=== PATIENT | male | born 1965 | race Caucasian/White ===

== ENCOUNTER 2019-06-09 14:27 | Emergency (ER) | payer OTHER ==
[~2019-06-09] VITALS: Ht 175.3 cm; Wt 73.0 kg
[~2019-06-09 14:27] MED LIST: IBUP-974 PO
[2019-06-09 14:43] VITALS: BP 131/73
--- NOTE | 2019-06-09 14:49 | NUR ---
53 Y/O MALE PRESENTED WITH C/C OF L THUMB PAIN DUE TO TRAUMA, 04/22, PRESSURE SENSATION. PER PT 2 WEEKS AGO PT CUT THUMB WITH SAW WHILE WORKING, CLEANED FINGER AND CONT TO WORK, ONE WEEK AGO HE HIT SAME THUMB WITH HAMMER AND WENT TO WHO PRESCRIBED ABX. PER PATIENT SQUEEZED THUMB AND YELLOW MATTER CAME OUT. PT HAS NKA. NO MEDICAL HX. NO MEDS ON REG BASIS. LAST ORAL INTAKE THIS MORNING, TOLERATED WELL. SIDE RAIL X1.
[2019-06-09] MEDS ORDERED: KETOROLAC 30 MG/ML VIAL IM ONE (15:05)
--- NOTE | 2019-06-09 16:05 | NUR ---
PATIENT AMBULATED TO BED 09
[2019-06-09 16:40] LABS: BASOPHILS # (AUTO) 0.1 K/uL (0.00-0.22); BASOPHILS % (AUTO) 0.8 % (0.0-2.0); EOSINOPHILS # (AUTO) 0.5 K/uL (0-0.4); EOSINOPHILS % (AUTO) 5.9 % (0.0-4.0); HEMATOCRIT 39.3 % (36-52); LYMPHOCYTES # (AUTO) 2.2 K/uL (2.0-11.5); LYMPHOCYTES % (AUTO) 29.4 % (20.5-51.1); MEAN CORPUSCULAR HEMOGLOBIN 29 pg (27-31); MEAN CORPUSCULAR HGB CONC 33 g/dL (33-37); MEAN CORPUSCULAR VOLUME 88.6 fL (80-94); MONOCYTES # (AUTO) 0.6 K/uL (0.8-1.0); MONOCYTES % (AUTO) 7.7 % (1.7-9.3); NEUTROPHILS # (AUTO) 4.3 K/uL (1.8-7.7); NEUTROPHILS % (AUTO) 56.2 % (42.2-75.2); PLATELET COUNT (AUTO) 309 K/uL (140-450); RED BLOOD CELL COUNT(AUTO) 4.44 MIL/uL (4.20-6.10); RED CELL DISTRIBUTION WIDTH 14.8 % (11.6-13.7); WHITE BLOOD COUNT (AUTO) 7.6 K/uL (4.8-10.8)
[2019-06-09 17:13] LABS: APPEARANCE,URINE CLEAR (CLEAR); BILIRUBIN,URINE NEGATIVE (NEGATIVE); BLOOD, URINE NEGATIVE (NEGATIVE); COLOR,URINE YELLOW (YELLOW); LEUKOCYTE ESTERASE ,URINE NEGATIVE (NEGATIVE); NITRITE, URINE NEGATIVE (NEGATIVE); UGLUCOSE NEGATIVE (NEGATIVE)
[2019-06-09 17:19] LABS: ALBUMIN 3.5 g/dL (3.4-5.0); ANION GAP 12.5 (8-16); CREATININE 0.8 mg/dL (0.7-1.3); POTASSIUM 4.5 mmol/L (3.5-5.1); TOTAL BILIRUBIN 0.3 mg/dL (0.0-1.0)
--- NOTE | 2019-06-09 17:19 | NUR ---
Patient appears to be resting comfortably in bed. Speaking with at bedside. Will continue to monitor.
--- NOTE | 2019-06-09 17:56 | NUR ---
Patient being evaluated by FANY KIM at bedside.
--- NOTE | 2019-06-09 17:58 | NUR ---
Dr. Ochoa evaluating patient at bedside.
[2019-06-09 18:30] VITALS: BP 150/80
--- NOTE | 2019-06-09 18:30 | NUR ---
Patient discharged with v/s stable. Written and verbal after care instructions given and explained. Patient alert, oriented and verbalized understanding of instructions. Ambulatory with steady gait. All questions addressed prior to discharge. ID band removed. Patient advised to follow up with PMD. Rx of clindamycin, ibuprofen given. Patient educated on indication of medication including possible reaction and side effects. Opportunity to ask questions provided and answered.
== END 2019-06-09 18:30 | disposition home or self-care (01) ==
LOC: MED 14:27
DX: M86.8X8 Other osteomyelitis, other site (principal); F17.210 Nicotine dependence, cigarettes, uncomplicated
CPT/HCPCS: 36415; 73140; 80053; 81003; 83605; 85025; 85610; 85730; 87040; 96372; 99284; J1885

== ENCOUNTER 2023-03-23 15:01 | Emergency (ER) | payer OTHER ==
[~2023-03-23] VITALS: Ht 175.3 cm; Wt 63.5 kg
[2023-03-23 15:07] VITALS: BP 124/80; PULSE 85; RESP 15; TEMP 97.9; O2SAT 98
[2023-03-23] MEDS ORDERED: LIDOCAINE MPF 1% 10 MG/ML VIAL INJ ONE (15:15)
[2023-03-23] MEDS ORDERED: BACITRACIN OINT 500 UNITS/GM PKT TP ONE (15:15)
== END 2023-03-23 16:01 | disposition home or self-care (01) ==
LOC: MED 15:01
DX: S61.217A Laceration without foreign body of left little finger without damage to nail, initial encounter (principal); W26.8XXA Contact with other sharp object(s), not elsewhere classified, initial encounter; Y93.89 Activity, other specified; Y92.89 Other specified places as the place of occurrence of the external cause; Y99.8 Other external cause status
CPT/HCPCS: 12001; 99282; J2001

== ENCOUNTER 2023-03-25 16:34 | Emergency (ER) | payer OTHER ==
[~2023-03-25] VITALS: Ht 175.3 cm; Wt 63.0 kg
[2023-03-25 16:55] VITALS: BP 119/71; PULSE 69; RESP 20; TEMP 97.7; O2SAT 98
[2023-03-25 17:05] VITALS: BP 120/69; PULSE 68; RESP 18; TEMP 98.1; O2SAT 99
== END 2023-03-25 17:05 | disposition home or self-care (01) ==
LOC: MED 16:34
DX: S61.217D Laceration without foreign body of left little finger without damage to nail, subsequent encounter (principal); Z48.00 Encounter for change or removal of nonsurgical wound dressing; X58.XXXD Exposure to other specified factors, subsequent encounter
CPT/HCPCS: 99282

== ENCOUNTER 2023-04-03 09:10 | Emergency (ER) | payer OTHER ==
[~2023-04-03] VITALS: Ht 175.3 cm; Wt 67.6 kg
[2023-04-03 09:22] VITALS: BP 122/78; PULSE 74; RESP 18; TEMP 98; O2SAT 99
== END 2023-04-03 09:45 | disposition home or self-care (01) ==
LOC: MED 09:10
DX: S61.217D Laceration without foreign body of left little finger without damage to nail, subsequent encounter (principal); F17.210 Nicotine dependence, cigarettes, uncomplicated; X58.XXXD Exposure to other specified factors, subsequent encounter
CPT/HCPCS: 99281